=== PATIENT | male | born 1990 | race African-American/Black ===

== ENCOUNTER 2024-02-01 12:41 | Outpatient (CLI) | payer MEDICAID, SELFPAY ==
--- NOTE | ~2024-02-01 | XR_ITS ---
Left wrist Technique: PA, oblique, lateral, and ulnar deviation views were obtained. Clinical History: Pain Findings: Transverse fracture through waist of the scaphoid is present. No other definite fracture or dislocation. Joint spaces are preserved. Soft tissues are unremarkable. Impression: Transverse fracture through the waist of the scaphoid. Reviewed, dictated and finalized at location . [facility] Impression: Transverse fracture through the waist of the scaphoid.
== END 2024-02-01 12:42 | disposition home or self-care (01) ==
PROVIDERS: PCP Internal Medicine; Visit Provider Internal Medicine
DX: S62.002A Unspecified fracture of navicular [scaphoid] bone of left wrist, initial encounter for closed fracture (principal); X58.XXXA Exposure to other specified factors, initial encounter
CPT/HCPCS: 73110

== ENCOUNTER 2024-02-03 16:44 | Emergency (ER) | payer MEDICAID, SELFPAY ==
--- NOTE | ~2024-02-03 | XR_ITS ---
EXAMINATION: XR wrist LT min 3V DATE: 02/03/2024 17:08 INDICATION: Left wrist injury. TECHNIQUE: 4 views of left wrist were obtained. COMPARISON: Left wrist radiographs 02/01/2024 FINDINGS: There is a transverse fracture of the waist of the scaphoid. There is a 3 mm loose body kristian abhinav to the carpus. 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 IMPRESSION: 1. Transverse fracture of the waist of the scaphoid again seen. 2. 3 mm loose body dorsal to the carpus, which may be a displaced fracture fragment. Reviewed, dictated and finalized at location A. [facility] IMPRESSION: 1. Transverse fracture of the waist of the scaphoid again seen. 2. 3 mm loose body dorsal to the carpus, which may be a displaced fracture frag ment.
[2024-02-03 16:44] VITALS: BP 149/92; PULSE 80; RESP 16; TEMP 36.6; O2SAT 100
--- NOTE | 2024-02-03 17:53 | ED.UPPEXIN ---
HPI - Extremity Injury (Upper) General Chief Complaint: Extremity Injury, Upper Stated Complaint: L wrist pain Time Seen by Provider: 02/03/24 17:53 Source: patient Mode of arrival: ambulatory Limitations: no limitations History of Present Illness HPI narrative: Patient with 33 year old male who presents the ED with report of left wrist pain. Patient reports he injured his left wrist in May of this year. He was diagnosed with a fracture of the scaphoid. Patient saw Hand surgery at that time, but states he had issues with his insurance. States he re-injured his left wrist 3-4 days ago while playing basketball. Complains of pain to his wrist. Has been taking Tylenol without improvement. Denies numbness. Patient is currently residing at [facility]. Related Data Allergies Allergy/AdvReac Type Severity Reaction Status Date / Time No Known Allergies Allergy Verified 02/03/24 18:44 Review of Systems Review of Systems: All systems reviewed & are unremarkable except as noted in HPI. All systems reviewed & are unremarkable except as noted in HPI and below PMFSH Social History Social History Smoking status: Former smoker Do You Feel Safe in your Home?: Yes Lack of Transportation: No Lack of Food: Never True Current Housing: I Have Housing Concerned About Future Housing: No Difficulty Paying Gas/Electric Bills: YES Difficulty Paying for Meds: YES Currently Unemployed: No Education: High School Diploma/GED Difficulty w/ Childcare or Family Care: No Exam Narrative: GENERAL: Well appearing, obese with BMI of 31.4, non-toxic, in no acute distress. HEAD: Normocephalic, atraumatic. RESPIRATORY: Airway patent, respirations nonlabored. CARDIOVASCULAR: Regular rate and rhythm. Radial pulses strong and easily palpable. MUSCULOSKELETAL: Moves all extremities. No gross deformities. Mild tenderness over L distal radius extending into carpal region. Positive anatomic snuffbox tenderness of L wrist. Sensation intact. SKIN: Warm, dry, normal color. NEURO: A&O X3. Speech clear. No ataxic movements. PSYCHIATRIC: Appropriate mood and affect. Normal interaction. Course Vital Signs Vital signs: Vital Signs Temperature 97.8 F 02/03/24 16:44 Pulse Rate 80 02/03/24 16:44 Respiratory Rate 16 02/03/24 16:44 Blood Pressure 149/92 H 02/03/24 16:44 Pulse Oximetry 100 02/03/24 16:44 Temperature 97.8 F 02/03/24 16:44 Pulse Rate 80 02/03/24 16:44 Respiratory Rate 16 02/03/24 16:44 Blood Pressure 149/92 H 02/03/24 16:44 Pulse Oximetry 100 02/03/24 16:44 MDM - Extremity Injury (Upper) MDM Narrative Medical decision making narrative: Patient presented to ED with left wrist pain. Diagnosed with a scaphoid fracture in May of this year, re-injured left wrist a few days ago playing basketball. Neurovascularly intact. X-ray of left wrist today, again showing transverse fracture of the scaphoid. Does also show a loose body which may be a fracture fragment. Discussed findings with patient. Discussed placing patient in a splint given re-injury and possible fx fragment. He is agreeable to this. Thumb spica splint placed in the ER. Will need follow-up with Orthopedics/ Hand for further evaluation and management of fracture. Given return precautions. He agrees with plan. Discharged in stable condition. Medical Records Attestation: I reviewed the patient's medical records. Imaging Data Attestation: I personally reviewed and interpreted this imaging study as follows: Radiologist's impression: ITS Impressions Wrist X-Ray 02/03/24 17:14 IMPRESSION: 1. Transverse fracture of the waist of the scaphoid again seen. 2. 3 mm loose body dorsal to the carpus, which may be a displaced fracture fragment. Discharge Plan Discharge Clinical Impression: Fracture of scaphoid of left wrist Qualifiers: Encounter type: subsequent encounter Scaphoid bone location: unspecified portion of scaphoid Fracture type: closed Fracture alignment: nondisplaced Fracture healing: with delayed healing Qualified Code(s): S62.002G - Unspecified fracture of navicular [scaphoid] bone of left wrist, subsequent encounter for fracture with delayed healing Patient Disposition: Home, Self-Care Condition: Stable Instructions: Antibiotic Form, Wrist Fracture in Adults (ED), Splint Care (ED), Scaphoid Fracture (ED) Additional Instructions: Follow-up with orthopedics or Hand surgery for further evaluation and management of fracture. Wear splint until seen by orthopedics. Continue Tylenol and ibuprofen as needed for pain. Return to the ED if you experience worsening or severe pain, numbness, recurrent injury, or any other symptoms of concern. Patient Language: Emirati Follow-up/Referrals: Katy Ronquillo MD [Physician] - (HAND SURGERY) Anand Youngblood MD [Primary Care Provider] - Shahbaz Calhoun MD [Physician] - (ORTHOPEDICS) Time of Disposition: 18:22
[2024-02-03] MEDS: IBUPROFEN 600 MG TABLET PO (18:42)
--- NOTE | 2024-02-03 18:58 | PC.NURSE ---
Called Maureen for a ride home for pt.
== END 2024-02-03 19:02 | disposition home or self-care (01) ==
LOC: ANHED 18:25
PROVIDERS: Emergency Provider Physician Assistant; PCP Internal Medicine
DX: S62.022A Displaced fracture of middle third of navicular [scaphoid] bone of left wrist, initial encounter for closed fracture (principal); Z87.891 Personal history of nicotine dependence; X58.XXXA Exposure to other specified factors, initial encounter; Y93.67 Activity, basketball
CPT/HCPCS: 29125; 29515; 73110; 99284; A9270